=== PATIENT | male | born 1995 | race Native Hawaiian/Other Pacific Islander ===

== ENCOUNTER 2020-06-09 11:42 | Emergency (ER) | payer OTHER ==
[~2020-06-09] VITALS: Ht 185.4 cm; Wt 68.0 kg
[2020-06-09 11:42] VITALS: BP 117/79; TEMP 97.6
== END 2020-06-09 13:16 ==
LOC: ED 11:42
DX: S61.412D Laceration without foreign body of left hand, subsequent encounter (principal)
CPT/HCPCS: 99282